=== PATIENT | female | born 1970 | race Caucasian/White ===

== ENCOUNTER → 2018-05-20 | Day surgery (SDC) | payer OTHER ==
--- NOTE | 2018-05-21 17:57 | PATH ---
Surgical Pathology Report Patient Name: SHAWNEE AGARWAL [facility]. Rec. #: [id number] /Age/Gender: 1970 (Age: 47) / F Account: [id number] Location: RADIOLOGY [facility] Taken: 05/20/2018 Received: 05/20/2018 Reported: 05/21/2018 Physicians: Mai Phillips M.D. Specimen(s) Received RIGHT BREAST 8:00 Clinical History Palpable mass Ultrasound findings: Probably benign 2.1 cm, ovoid mass Final Diagnosis BREAST, RIGHT, 8:00, ULTRASOUND GUIDED CORE BIOPSY: FIBROADENOMA. Electronically Signed Tish Mckeon M.D. Gross Description Received in formalin labeled "right 8:00," are 3 lal-yellow, cylindrical portions of fibroadipose tissue ranging from 1.0-1.2 cm in length and averaging 0.1 cm in diameter. The specimens are submitted in toto in one cassette. Time to formalin fixation: Less than one minute Total formalin fixation time: Approximately 8 hours. /05/20/2018 [facility]05/20/2018
== END | disposition home or self-care (01) ==
LOC: JRADUS-SUR 08:42
PROVIDERS: ATTEND Family Medicine
PROC: 0HBT3ZX Excision of Right Breast, Percutaneous Approach, Diagnostic (ICD-10-PCS; principal; 2018-05-20)
DX: D24.1 Benign neoplasm of right breast (principal)
CPT/HCPCS: 19083; 88305-TC; A4648